=== PATIENT | female | born 1955 | race Caucasian/White ===

== ENCOUNTER 2016-07-17 08:06 | Emergency (ER) | payer BC ==
[~2016-07-17 08:06] MED LIST: JANUMET XR 1001 EACH PO; LISINOPRIL5 MG PO; LOVASTATIN20 MG PO; NICOTINE PATCH1 EAC2 TD; PANTOPRAZOLE SO40 MG PO; ST. JOSEPH ASPI81 MG PO
[2016-07-17] MEDS ORDERED: FLEXERIL10 MG PO (10:40)
[2016-07-17] MEDS ORDERED: MOTRIN800 MG PO (10:40)
[2016-07-17] MEDS ORDERED: PREDNISONE20 MG PO (10:40)
[2016-07-17] MEDS ORDERED: PERCOCET 5/31 TABLET PO (10:41)
[2016-07-17 11:14] VITALS: BP 123/84
== END 2016-07-17 11:14 | disposition home or self-care (01) ==
LOC: EME 08:06
DX: M54.42 Lumbago with sciatica, left side (principal); E11.9 Type 2 diabetes mellitus without complications; I10 Essential (primary) hypertension; E78.5 Hyperlipidemia, unspecified; Z79.82 Long term (current) use of aspirin; F17.200 Nicotine dependence, unspecified, uncomplicated
CPT/HCPCS: 73502; 99281; 99283; J1885; J3360; J7512

== ENCOUNTER 2016-09-21 21:01 | Emergency (ER) | payer BC ==
[~2016-09-21] VITALS: Ht 157.5 cm; Wt 68.0 kg
[~2016-09-21 21:01] MED LIST changes: +FLEXERIL10 MG PO; +MOTRIN800 MG PO; +PERCOCET 5/31 TABLET PO; +PREDNISONE20 MG PO
[2016-09-21] MEDS ORDERED: AUGMENTIN875 MG PO (23:09)
[2016-09-21 23:29] VITALS: BP 151/93
== END 2016-09-21 23:29 | disposition home or self-care (01) ==
LOC: EME 21:01
PROC: 3E0234Z Introduction of Serum, Toxoid and Vaccine into Muscle, Percutaneous Approach (ICD-10-PCS; principal; 2016-09-21)
DX: S81.852A Open bite, left lower leg, initial encounter (principal); Z23 Encounter for immunization; W54.0XXA Bitten by dog, initial encounter
CPT/HCPCS: 73590; 99281; 99284